=== PATIENT | female | born 1995 | race Caucasian/White ===

== ENCOUNTER 2022-04-14 00:13 | Emergency (ER) | payer MEDICAID ==
[~2022-04-14] VITALS: Ht 172.7 cm; Wt 54.5 kg
[2022-04-14 01:11] LABS: BASOPHILS % (AUTO) 0.6 % (0.0-2.0); EOSINOPHILS % (AUTO) 9.8 % (1.0-6.0); HEMATOCRIT 37.4 % (36-46); HEMOGLOBIN 12.4 g/dL (12.0-16.0); LYMPHOCYTES # (AUTO) 3.9 K/uL (1.0-4.8); LYMPHOCYTES % (AUTO) 45.4 % (22.0-44.0); MEAN CORPUSCULAR HEMOGLOBIN 28.7 pg (26.0-34.0); MEAN CORPUSCULAR HGB CONC 33.2 G/dL (31.0-37.0); MEAN CORPUSCULAR VOLUME 86 fL (80-100); MONOCYTES # (AUTO) 0.6 K/uL (0.1-1.0); MONOCYTES % (AUTO) 6.7 % (2.0-9.0); NEUTROPHILS # (AUTO) 3.2 K/uL (1.8-7.7); NEUTROPHILS % (AUTO) 37.5 % (40.0-70.0); PLATELET COUNT (AUTO) 288 K/uL (150-450); RED BLOOD CELL COUNT(AUTO) 4.34 MIL/uL (4.00-5.20); RED CELL DISTRIBUTION WIDTH 13.8 % (11.5-14.5)
[2022-04-14 01:21] LABS: ANION GAP 10 mmol/L (8-16); CALCIUM, TOTAL 8.9 mg/dL (8.8-10.5); CARBON DIOXIDE 26 mmol/L (22-29); CHLORIDE 105 mmol/L (98-107); CREATININE 0.66 mg/dL (0.60-1.30); GLUCOSE,RANDOM 109 mg/dL (70-110); POTASSIUM 3.8 mmol/L (3.5-5.1); SODIUM SERUM 141 mmol/L (136-145); UREA NITROGEN, BLOOD 14 mg/dL (7-18)
[2022-04-14 01:22] LABS: GLOMERULAR FILTR. RATE CALC > 60 mL/min (>60)
[2022-04-14 02:00] LABS: APPEARANCE,URINE CLEAR (CLEAR); BILIRUBIN,URINE NEGATIVE (NEGATIVE); GLUCOSE, URINE (UA) NEGATIVE (NEGATIVE); KETONES,URINE TRACE mg/dL (NEGATIVE); LEUKOCYTE ESTERASE ,URINE NEGATIVE (NEGATIVE); NITRATE,URINE NEGATIVE (NEGATIVE); OCCULT BLOOD,URINE LARGE (NEGATIVE); PH,URINE 5.5 (5.0-8.0); PROTEIN,URINE TRACE mg/dL (NEGATIVE); SPECIFIC GRAVITIY, URINE 1.037 (1.003-1.030); UROBILINOGEN,URINE <=1.0 mg/dL (<=1.0)
[2022-04-14 02:13] LABS: BACTERIA,URINE None Seen /HPF (None Seen); RBC,URINE 26-50 /HPF (0-2); SQUAMOUS EPITHELIAL CELL,UR Few /LPF (None Seen); WBC,URINE 0-2 /HPF (0-5)
[2022-04-14 02:40] LABS: HCG,QUANTITATIVE 104 mIU/mL (0-6)
[2022-04-14 05:00] VITALS: BP 106/62
== END 2022-04-14 05:09 | disposition home or self-care (01) ==
LOC: EMS 00:15
DX: N93.9 Abnormal uterine and vaginal bleeding, unspecified (principal)
CPT/HCPCS: 76801; 76817; 80048; 81001; 84702; 84703; 85025; 86850; 86900; 86901; 99284

== ENCOUNTER 2022-04-15 11:14 | Emergency (ER) | payer MEDICAID ==
[~2022-04-15] VITALS: Ht 162.6 cm; Wt 59.1 kg
[2022-04-15 12:09] LABS: BASOPHILS % (AUTO) 0.7 % (0.0-2.0); EOSINOPHILS % (AUTO) 13.2 % (1.0-6.0); HEMATOCRIT 36.7 % (36-46); HEMOGLOBIN 12.3 g/dL (12.0-16.0); LYMPHOCYTES # (AUTO) 2.9 K/uL (1.0-4.8); LYMPHOCYTES % (AUTO) 43.8 % (22.0-44.0); MEAN CORPUSCULAR HEMOGLOBIN 28.7 pg (26.0-34.0); MEAN CORPUSCULAR HGB CONC 33.5 G/dL (31.0-37.0); MEAN CORPUSCULAR VOLUME 86 fL (80-100); MONOCYTES # (AUTO) 0.3 K/uL (0.1-1.0); MONOCYTES % (AUTO) 5.1 % (2.0-9.0); NEUTROPHILS # (AUTO) 2.4 K/uL (1.8-7.7); NEUTROPHILS % (AUTO) 37.2 % (40.0-70.0); PLATELET COUNT (AUTO) 274 K/uL (150-450); RED BLOOD CELL COUNT(AUTO) 4.27 MIL/uL (4.00-5.20); RED CELL DISTRIBUTION WIDTH 13.6 % (11.5-14.5)
[2022-04-15 12:19] LABS: CARBON DIOXIDE 29 mmol/L (22-29); CHLORIDE 109 mmol/L (98-107); POTASSIUM 3.9 mmol/L (3.5-5.1); SODIUM SERUM 145 mmol/L (136-145)
[2022-04-15 12:20] LABS: ANION GAP 7 mmol/L (8-16); CALCIUM, TOTAL 8.7 mg/dL (8.8-10.5); CREATININE 0.57 mg/dL (0.60-1.30); GLOMERULAR FILTR. RATE CALC > 60 mL/min (>60); GLUCOSE,RANDOM 112 mg/dL (70-110); UREA NITROGEN, BLOOD 12 mg/dL (7-18)
[2022-04-15 12:23] LABS: INR 1.1 (0.9-1.1); PROTHROMBIN TIME 11.6 SEC (9.4-11.6)
[2022-04-15 12:26] LABS: ALANINE AMINOTRANSFERASE 19 U/L (12-78); ALBUMIN 4.2 g/dL (3.4-5.0); ALKALINE PHOSPHATASE 72 U/L (46-116); ASPARTATE AMINOTRANSFERASE 13 U/L (15-37); BILIRUBIN,TOTAL 0.3 mg/dL (0.1-1.0)
[2022-04-15 12:30] LABS: LACTIC ACID 2.2 mmol/L (0.4-2.0)
[2022-04-15] MEDS ORDERED: SODIUM CHLORIDE 0.9% 1,000 ML IV ONE ×2 (12:30→13:15)
[2022-04-15 12:41] LABS: APPEARANCE,URINE CLEAR (CLEAR); BILIRUBIN,URINE NEGATIVE (NEGATIVE); GLUCOSE, URINE (UA) NEGATIVE (NEGATIVE); KETONES,URINE NEGATIVE (NEGATIVE); LEUKOCYTE ESTERASE ,URINE NEGATIVE (NEGATIVE); NITRATE,URINE NEGATIVE (NEGATIVE); OCCULT BLOOD,URINE LARGE (NEGATIVE); PH,URINE 5.5 (5.0-8.0); PROTEIN,URINE TRACE mg/dL (NEGATIVE); UROBILINOGEN,URINE <=1.0 mg/dL (<=1.0)
[2022-04-15 12:45] LABS: HCG,QUANTITATIVE 50 mIU/mL (0-6)
[2022-04-15 13:07] LABS: COVID AG,FIA SOURCE NASOPHARYNGEAL
[2022-04-15 14:27] LABS: SQUAMOUS EPITHELIAL CELL,UR Few /LPF (None Seen)
[2022-04-15 14:29] LABS: BACTERIA,URINE None Seen /HPF (None Seen); WBC,URINE 0-2 /HPF (0-5)
[2022-04-15] MEDS ORDERED: METHYLERGONOVINE MALEATE 0.2 MG TABLET PO ONE (15:30)
[2022-04-15] MEDS ORDERED: MISOPROSTOL 100 MCG TABLET PO ONE (15:30)
[2022-04-15 16:16] VITALS: BP 125/87
== END 2022-04-15 16:32 | disposition home or self-care (01) ==
LOC: EMS 14:01
DX: N93.9 Abnormal uterine and vaginal bleeding, unspecified (principal); R00.0 Tachycardia, unspecified; Z20.822 Contact with and (suspected) exposure to COVID-19
CPT/HCPCS: 99284; 96360; 96361; 87426; 80053; 81001; 83605; 84484; 84702; 85025; 85610; 85730; 36415; 93005; J7030; C9803

== ENCOUNTER 2023-12-03 15:28 | Emergency (ER) | payer MEDICAID ==
[~2023-12-03] VITALS: Ht 162.6 cm; Wt 63.6 kg
[2023-12-03 15:54] VITALS: TEMP 98.3
[2023-12-03 16:23] LABS: BASOPHILS % (AUTO) 0.5 % (0.0-2.0); EOSINOPHILS % (AUTO) 8.6 % (1.0-6.0); HEMATOCRIT 37.2 % (36-46); HEMOGLOBIN 12.6 g/dL (12.0-16.0); LYMPHOCYTES # (AUTO) 2.8 K/uL (1.0-4.8); MEAN CORPUSCULAR HEMOGLOBIN 29.6 pg (26.0-34.0); MEAN CORPUSCULAR HGB CONC 33.8 G/dL (31.0-37.0); MEAN CORPUSCULAR VOLUME 88 fL (80-100); MONOCYTES # (AUTO) 0.7 K/uL (0.1-1.0); MONOCYTES % (AUTO) 5.5 % (2.0-9.0); NEUTROPHILS # (AUTO) 7.6 K/uL (1.8-7.7); NEUTROPHILS % (AUTO) 62.4 % (40.0-70.0); PLATELET COUNT (AUTO) 317 K/uL (150-450); RED BLOOD CELL COUNT(AUTO) 4.24 MIL/uL (4.00-5.20); RED CELL DISTRIBUTION WIDTH 12.9 % (11.5-14.5); WHITE BLOOD COUNT (AUTO) 12.2 K/uL (4.5-11.0)
[2023-12-03 16:48] LABS: ANION GAP 9 mmol/L (8-16); CALCIUM, TOTAL 8.7 mg/dL (8.8-10.5); CARBON DIOXIDE 24 mmol/L (22-29); CHLORIDE 104 mmol/L (98-107); CREATININE 0.71 mg/dL (0.60-1.30); GLOMERULAR FILTR. RATE CALC > 60 mL/min (>60); GLUCOSE,RANDOM 108 mg/dL (70-110); SODIUM SERUM 137 mmol/L (136-145); UREA NITROGEN, BLOOD 14 mg/dL (7-18)
[2023-12-03 17:01] LABS: HCG,QUANTITATIVE 1 mIU/mL (0-6)
[2023-12-03] MEDS ORDERED: NORG1TAB12 PO (21:15)
[2023-12-03 21:41] VITALS: BP 129/79; PULSE 92; RESP 18; O2SAT 100
== END 2023-12-03 21:42 | disposition home or self-care (01) ==
LOC: EMS 15:28
DX: N93.9 Abnormal uterine and vaginal bleeding, unspecified (principal)
CPT/HCPCS: 76856; 80048; 84702; 85025; 99284

== ENCOUNTER 2025-02-15 12:34 | Emergency (ER) | payer MEDICAID, OTHER ==
[~2025-02-15] VITALS: Ht 157.5 cm; Wt 63.2 kg
[~2025-02-15 12:34] MED LIST: NORG1TAB12 PO
[2025-02-15 12:41] VITALS: TEMP 97.5
[2025-02-15 13:01] LABS: APPEARANCE,URINE HAZY (CLEAR); GLUCOSE, URINE (UA) NEGATIVE (NEGATIVE); LEUKOCYTE ESTERASE ,URINE LARGE (NEGATIVE); NITRATE,URINE NEGATIVE (NEGATIVE); OCCULT BLOOD,URINE NEGATIVE (NEGATIVE); SPECIFIC GRAVITIY, URINE 1.038 (1.003-1.030)
[2025-02-15 13:14] LABS: SQUAMOUS EPITHELIAL CELL,UR Few /LPF (None Seen)
[2025-02-15 13:21] LABS: PLATELET COUNT (AUTO) 304 K/uL (150-450); RED BLOOD CELL COUNT(AUTO) 4.01 MIL/uL (4.00-5.20); RED CELL DISTRIBUTION WIDTH 12.5 % (11.5-14.5); WHITE BLOOD COUNT (AUTO) 8.9 K/uL (4.5-11.0)
[2025-02-15 13:30] LABS: CALCIUM, TOTAL 8.6 mg/dL (8.8-10.5); CREATININE 0.45 mg/dL (0.60-1.30); GLOMERULAR FILTR. RATE CALC > 60 mL/min (>60); GLUCOSE,RANDOM 106 mg/dL (70-110); SODIUM SERUM 133 mmol/L (136-145); UREA NITROGEN, BLOOD 12 mg/dL (7-18)
[2025-02-15 13:55] LABS: ASPARTATE AMINOTRANSFERASE 15.0 U/L (15-37); TOTAL PROTEIN, SERUM 7.5 g/dL (6.4-8.2)
[2025-02-15] MEDS: SODIUM CHLORIDE 0.9% 1,000 ML IV ONE ×2 (14:56→15:39)
[2025-02-15 15:35] VITALS: BP 118/65; PULSE 83; RESP 18; O2SAT 100
[2025-02-15] MEDS ORDERED: CEPH-558 PO (17:26)
[2025-02-15] MEDS: CEPHALEXIN MONOHYDRATE 500 MG CAPSULE PO ONE (17:29)
== END 2025-02-15 17:37 | disposition home or self-care (01) ==
LOC: EMS 12:34
DX: O26.891 Other specified pregnancy related conditions, first trimester (principal); R11.2 Nausea with vomiting, unspecified; R10.32 Left lower quadrant pain; O23.40 Unspecified infection of urinary tract in pregnancy, unspecified trimester; N83.209 Unspecified ovarian cyst, unspecified side; Z3A.16 16 weeks gestation of pregnancy; Z79.899 Other long term (current) drug therapy
CPT/HCPCS: 99284; 96360; 76801; 96361; 80048; 80076; 81001; 82150; 83690; 84702; 85025; 87086; 86901; 36415; J7030